=== PATIENT | female | born 1955 | race Caucasian/White ===

== ENCOUNTER 2025-11-02 13:41 | Outpatient (AMB) | payer OTHER, SELFPAY ==
--- NOTE | 2025-11-02 14:42 | A.OFFPC_ITS ---
Vital Signs 11/02/25 14:48 Height 5 ft Weight 166 lb 8 oz BMI 32.5 BP 120/78 Blood Pressure Location Lt brachial Position Sitting Respiration 14 Pulse 67 Pulse Source Pulse Oximeter Temp 97.3 F Temp Source Temporal Artery Scan Pulse Oximetry (%) 96 Oxygen Delivery Method Room Air Intake Visit Reasons: CERTIFIER lower abdominal cramping Intake Note: [place] presents in the offie today to establish care. Recreation Establishment Manager Required: No Is last menstrual period known: No Post menopausal: Yes Patient : No Allergies sulfacetamide Allergy (Verified 11/02/25 14:46) Rash Tobacco use date assessed: 11/02/25 Fall risk assessment: No Falls in past year Last assessed Fall Risk: 11/02/25 Dental Screening Dental Screen Date: 11/02/25 Did you have a dental visit in the last 12 months?: Yes Did you have a dental problem in the last 6 months where you did not have access to dental care?: No Was dental information given to patient?: Patient has dentist HPI HPI Comments History of Present Illness Details 70-year-old female with a past medical h istory of lumbar radiculopathy, intertrigo, macromastia status post bilateral breast reduction presents to establish care. She transferred from [place]. Patient's appointment was booked due to abdominal cramping, but this is resolved. She attributes it to constipation. She went to urgent care for evaluation. She reportedly had an ultrasound which was normal. She has chronic constipation for years. She has a bowel movement every 4 days, but she has to take MiraLax every day. Occasionally she uses laxatives. She feels like food sits in her stomach for a long time after she eats. No nausea or vomiting. No unexplained weight loss or blood in stools. She denies a family history of gastrointestinal problems or cancer. She has no history of diabetes, but when she had an insurance screening tests she was told she was prediabetic. She admits she does not great at drinking water during the day more having fiber in her diet. History of basal cell carcinoma of the right side of the cheek. Followed by [facility]. She has an appointment in December. She has a scaly patch on her right cheek and her right hand for them to examined. Mammogram: Ordered Colon cancer screening 10/18/2016, repeat advised in 10 years per records Tdap 09/03/2014 Bone density: 2 years ago. Ordered Patient says she received influenza vaccine this season and Shingrix vaccine. Recommended pneumonia vaccine and tetanus vaccine. ROS: Constitutional: No unexplained weight loss, fever, chills, fatigue or night sweats. Eyes: No vision changes, blurry vision, double vision, eye pain, eye redness, eye discharge. ENT: No hearing loss, sneezing, congestion, runny nose or sore throat. Respiratory: No shortness of breath, cough or sputum production. Cardiovascular: No chest pain, chest pressure or chest discomfort. No palpitations or pedal edema. Gastrointestinal: No anorexia, nausea, vomiting or diarrhea. No abdominal pain or blood in stool. Genitourinary: No dysuria, hematuria, urinary frequency. Neurologic: No headache, dizziness, syncope, unilateral weakness, ataxia, numbness or tingling in the extremities. Musculoskeletal: No muscle pain, back pain, joint pain or swelling. Hematologic/Lymphatics: No bleeding or bruising. No painful lymph nodes. Skin: see HPI Endocrine: No cold or heat intolerance. No polyuria or polydipsia. Psychiatric: No depression or anxiety. No SI/HI. Physical exam: Constitutional: Alert, in no distress. Head: Normocephalic. Eyes: Pupils are equal, round and reactive to light. Extraocular muscles intact. Ear, Nose and Throat: Canals clear. TMs normal. Normal nasal mucosa. No nasal discharge. No oral lesions. Neck: Supple, Full range of motion. No lymphadenopathy. No palpable thyroid masses. Respiratory: Clear to auscultation. Cardiovascular: S1 S2 regular. No murmurs. No carotid bruits. Gastrointestinal: Abdomen soft, non-tender, non-distended. Normal bowel sounds. No palpable masses. Neurologic: No focal neurological deficits. Symmetric patellar reflexes. Moves all extremities spontaneously. Skin: Small erythematous scaly lesion on the back of the right hand and similar appearing lesion on the right cheek Musculoskeletal: No gross deformities. Normal range of motion. Extremities: Warm and well perfused. No clubbing, cyanosis or edema. Psychiatric: Normal mood and affect PENDING SALE TO [facility] Medical History (Updated 11/02/25 @ 15:22 by MARCO Araujo) Screening for cardiovascular condition Prediabetes Screen for colon cancer Delayed gastric emptying Chronic constipation History of basal cell cancer Surgical History (Updated 11/02/25 @ 14:56 by Patricia Hilario CMA) History of back surgery H/O bilateral breast reduction surgery Family History (Updated 11/02/25 @ 14:58 by Patricia Hilario [facility]) Brother Asthma Diabetes Father Diabetes Cardiovascular disease Lung cancer Mother Cardiovascular disease Bone cancer Maternal Grandmother Cancer Social History (Updated 11/02/25 @ 14:48 by Patricia Hilario [facility]) Housing: House Alcohol intake: current Patient Tobacco Use Status: Never used Tobacco e-Cigarette/Vaping Use: Never Used Second Hand Smoke Exposure: Yes (when young) service: Yes ([employer]) Current occupational status: retired 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 1. Little interest or pleasure in doing things: not at all 2. Feeling down, depressed, or hopeless: not at all 3. Trouble falling or staying asleep, or sleeping too much: several days 4. Feeling tired or having little energy: not at all 5. Poor appetite or overeating: several days 6. Feeling bad about yourself - or that you are a failure or have let yourself or your family down: not at all 7. Trouble concentrating on things, such as reading the newspaper or watching television: not at all 8. Moving or speaking so slowly that other people could have noticed. Or the opposite - being so fidgety or restless that you have been moving around a lot more than usual: not at all 9. Thoughts that you would be better off or of hurting yourself in some way: not at all Total score: 2 Depression Screening Interpretation: Negative Depression Screening Done: Yes 77864 - PHQ-9 Billing: Yes Source: Developed by Drs. Santana Peterson, Keri Pickett, Dav Perez and colleagues, with an educational earl from [employer]. Thrive Questionnaire Date Thrive assessed: 11/02/25 I am a: Patient What is your living situation today?: I have a steady place to live Within the past 12 months, did the food you bought not last and you didn't have the money to get more?: Never true Within the past 12 months, did you worry whether your food would run out before you got money to buy more?: Never true Do you have trouble paying for medicines?: No Do you have trouble getting transportation to medical appointments?: No Do you have trouble paying your heating and electricity bill?: No Do you have trouble taking care of your child, family member or friend?: No Do you have trouble with day-to-day activities such as bathing, preparing meals, shopping, managing finances, etc.?: No Are you currently unemployed and looking for a job?: No Are you interested in more education?: No Please select the resources that you would like help with: None Currently or been in a relationship where the following occur: No concerns reported THRIVE Score: 0 AUDIT C Alcohol Use Questionnaire (AUDIT-C) 1. How often do you have a drink containing alcohol?: Monthly or less 2. How many drinks containing alcohol do you have on a typical day when you are drinking?: 1 or 2 3. How often do you have six or more drinks on one occasion?: Never Total Score: 1 LLOYD-7 AMB Questionnaire LLOYD-7 Date LLOYD - 7 assessed: 11/02/25 Feeling nervous, anxious, or on edge: 0 = Not at all Not being able to stop or control worryin = Not at all Worrying too much about different things: 0 = Not at all Trouble relaxin = Not at all Being so restless that it is hard to sit still: 0 = Not at all Becoming easily annoyed or irritable: 0 = Not at all Feeling afraid as if something awful might happen: 0 = Not at all Total LLOYD-7 score (0-4 normal; 5-9 mild; 10-14 moderate; 15-21 severe): 0 Source: Developed by Drs. Santana Peterson, Keri Pickett, Dav Perez and colleagues, with an educational earl from [employer]. LLOYD-7 Assessment Billing LLOYD-7 Assessment Tool: LLOYD-7 Assessment 78537 Physical exam (Primary Care) Vital Signs: Last Vital Signs Temp 97.3 F 11/02/25 14:48 Pulse 67 11/02/25 14:48 Resp 14 11/02/25 14:48 BP 120/78 11/02/25 14:48 Pulse Ox 96 11/02/25 14:48 Oxygen Delivery Method Room Air 11/02/25 14:48 BMI result Body Mass Index 32.5 Tobacco/Smoking Status: Tobacco use Status Tobacco use date assessed 11/02/25 11/02/25 14:52 Patient Tobacco Use Status Never used Tobacco 11/02/25 14:52 e-Cigarette/Vaping Use Never Used 11/02/25 14:52 PHQ-9: PHQ-9 Score PHQ-9: Total score 2 11/02/25 15:15 Depression Screening Interpretation: Negative Thrive Assessment: Date of Thrive Assessment Date Thrive assessed 11/02/25 11/02/25 14:52 Currently or been in a relationship where the following occur: No concerns reported Coding Level of Care Code Est Pt Prev Care >65y(75410) Add On Preventative Visit Only Diagnoses Routine physical examination Z00.00 Chronic constipation K59.09 Delayed gastric emptying K30 Screen for colon cancer Z12.11 Prediabetes R73.03 Screening for cardiovascular condition Z13.6 Additional Codes LLOYD-7 Assessment Billing - LLOYD-7 Assessment Tool: LLOYD-7 Assessment 80625 ([id number]) PHQ-9 - 27834 - PHQ-9 Billing: Yes ([id number]) Assessment & Plan Assessment & Plan (1) Routine physical examination: Code(s): Z00.00 - Encounter for general adult medical examination without abnormal findings Plan: Patient is seen today for a routine exam. As part of this visit we reviewed the following issues, which are considered and essential part of preventative health in this age group: - Breast Cancer screening - Annual Machine Tool Electrician exam - Screening for colon cancer - Blood pressure screening - Cholesterol screening - Osteoporosis prevention including calcium/vitamin D intake, weight bearing exercise & smoking cessation - Counseling of injury prevention including fire prevention, smoke alarms and seat belt usage - Screening for depression - Recommendations about immunizations - Recommendation of an eye exam (2) Chronic constipation: Code(s): K59.09 - Other constipation Category: Medical Plan: Recommended increasing fiber and fluid intake. Recommended regular exercise. Avoid straining. She is taking MiraLax. Recommended addition of fiber supplement like Benefiber or Metamucil. Refer to Gastroenterology. Check labs including TSH. (3) Delayed gastric emptying: Code(s): K30 - Functional dyspepsia Category: Medical Plan: Refer to Gastroenterology. Check labs including TSH. (4) Screen for colon cancer: Code(s): Z12.11 - Encounter for screening for malignant neoplasm of colon Category: Medical Plan: Patient will be due for colonoscopy in 2025. Referral placed to gastroenterology since there are long waits to schedule consults and procedures at this time. (5) Prediabetes: Code(s): R73.03 - Prediabetes Category: Medical Plan: Check hemoglobin A1c. Recommended low carb, low sugar diet. (6) Screening for cardiovascular condition: Code(s): Z13.6 - Encounter for screening for cardiovascular disorders Category: Medical Plan Schedule physical in 1 year. Orders: Orders MM screening mammo BI 11/02/25 Z12.31 - Encounter for screening mammogram for malignant neoplasm of breast XR DEXA axial skeleton 11/02/25 Z78.0 - Asymptomatic menopausal state Vitamin D 25-OH (D2 and D3) Today K59.09 - Other constipation, R73.03 - Pre diabetes, Z12.11 - Encounter for screening for malignant neoplasm of colon, Z13.6 - Encounter for screening for cardiovascular disorders Comprehensive Met. Panel Today K59.09 - Other constipation, R73.03 - Prediabetes, Z12.11 - Encounter for screening for malignant neoplasm of colon, Z13.6 - Encounter for screening for cardiovascular disorders TSH reflex Free T4 Today K59.09 - Other constipation, R73.03 - Prediabetes, Z12.11 - Encounter for screening for malignant neoplasm of colon, Z13.6 - Encounter for screening for cardiovascular disorders Lipid Panel Today K59.09 - Other constipation, R73.03 - Prediabetes, Z12.11 - Encounter for screening for malignant neoplasm of colon, Z13.6 - Encounter for screening for cardiovascular disorders Complete Blood Count no Diff Today K59.09 - Other constipation, R73.03 - Prediabetes, Z12.11 - Encounter for screening for malignant neoplasm of colon, Z13.6 - Encounter for screening for cardiovascular disorders Hemoglobin A1c Today K59.09 - Other constipation, R73.03 - Prediabetes, R73.9 - Hyperglycemia, unspecified, Z12.11 - Encounter for screening for malignant neoplasm of colon, Z13.6 - Encounter for screening for cardiovascular disorders Referrals Gastroenterology Referral K30 - Functional dyspepsia, K59.09 - Other constipation, Z12.11 - Encounter for screening for malignant neoplasm of colon
[2025-11-02 14:48] VITALS: BP 120/78; PULSE 67; RESP 14; TEMP 36.3; O2SAT 96; BMI 32.5
--- OUTSIDE RECORDS SUMMARY | 2025-11-02 15:56 | XMS_ITS | Clinical Summary ---
Author Organization [address] Address [address] [place] [address] Care Team Providers Care Skatesman Name Role Phone Referring, No Primary Care Provider Unavailabl e Allergies Active Allergy Reactions Criticality Noted Date Comments Sulfa (Sulfonamide Antibiotics) Rash Low 08/05 Medications No known medications Active Problems No known active problems Encounters Date Type Department Care Team Description 08/24/2025 [place] [address] Penelope Yip PA Urine culture 08/21/2025 9:00 AM EDT Office Visit [facility] [address] [place] [address] Kimberly Ovalles PA Urinary frequency (Primary Dx); Pelvic pressure in female from Last 3 Months Social History Tobacco Use Types Packs/Day Years Used Date Smoking Tobacco: Never Tobacco Cessation:Counseling Given: Not Answered Comments Unknown Sex and Gender Information Value Date Recorded Sex Assigned at Not on file Legal Sex Female 11:17 AM EDT Gender Identity Not on file Sexual Orientation Not on file Last Filed Vital Signs Vital Sign Reading Time Taken Comments Blood Pressure 126/82 08/21/2025 8:54 AM EDT Pulse 65 08/21/2025 8:54 AM EDT Temperature 36.9 C (98.5 F) 08/21/2025 8:54 AM EDT Respiratory Rate 16 08/21/2025 8:54 AM EDT Oxygen Saturation 99% 08/21/2025 8:54 AM EDT Inhaled Oxygen Concentration - - Weight 75.8 kg (167 lb) 08/21/2025 8:54 AM EDT Height 152.4 cm (5') 08/21/2025 8:54 AM EDT Body Mass Index 32.61 08/21/2025 8:54 AM EDT Plan of Treatment Health Maintenance Due Date Last Done Comments HIV screening 1968 Hepatitis C screening 1973 Lipid disorder screening 1995 Colon cancer screening, Colonoscopy 2000 Diabetes screening 2000 Pneumococcal Vaccine (50+ years) (1 of 1 - PCV) 2005 Shingles vaccine (Shingrix) (1 of 2 - Shingrix (RZV) 2 Dose Standard Series) 2005 Osteoporosis screening (bone density) 2020 Tetanus adult (Td q 10,TDAP once) 09/03/2024 09/03/2014 Influenza vaccine 06/05/2025 08/21/2021, 08/20/2020 Covid-19 vaccine series ( season) 2025 08/27/2021, 01/29/2021, 12/29/2020 Breast cancer screening 01/19/2027 01/20/20, 01/19/2025 RSV Immunization (1 - 1-dose 75+ series) 2030 Cervical cancer screening Discontinued Meningococcal B Vaccine Aged Out No l onger eligible based on patient's age to complete this topic Meningococcal Vaccine Aged Out No kaleb brandan eligible based on patient's age to complete this topic Procedures Procedure Name Priority Date/Time Associated Diagnosis Comments URINE CULTURE Routine 08/21/2025 9:11 AM EDT Urinary frequency POCT URINALYSIS 10SG ([facility]) Routine 08/21/2025 9:06 AM EDT Urinary frequency from Last 3 Months Results * Urine culture (08/21/2025 9:11 AM EDT) Urine Culture, Routine SEE NOTE [facility] Comment: CULTURE, URINE, ROUTINE Micro Number: [id number] Test Status: Final Specimen Source: Urine Specimen Quality: Adequate Result: Mixed genital edouard isolated. These superficial bacteria are not indicative of a urinary tract infection. No further organism identification is warranted on this specimen. If clinically indicated, recollect clean-catch, mid-stream urine and transfer immediately to Urine Culture Transport Tube. Urine URINE SPECIMEN OBTAINED BY CLEAN CATCH PROCEDURE / Unknown 08/21/2025 9:11 AM EDT 08/22/2025 4:58 AM EDT Narrative Resulting Agency Comment Performing Lab: Site ID: [id number] Name: [facility] Address: [address] [place] [id number] Director: Alda Cartwright M.D. Kimberly LARA MICROBIOLOGY - GENERAL ORD ERABLES Final Result [facility] [address] [place] [address] * POCT Urinalysis 10SG(In-Clinic) (08/21/2025 9:06 AM EDT) POC Leukocytes, UA Negative Negative POC Nitrites, UA Negative Negative POC Urobilinogen, UA Negative Negative POC Protein, UA Negative Negative POC pH, UA 6.0 5.0, 5.5, 6.0, 6.5, 7.0, 7.5, 8.0 POC Blood, UA Negative Negative POC Specific [place], UA 1.010 1.005, 1.010, 1.015, 1.020, 1.025, 1.030 POC Ketones, UA Negative Negative POC Bilirubin, UA Negative Negative POC Glucose, UA Negative Negative POC Clarity, UA Clear Clear POC Color, UA Yellow Yellow, Colorless POC Kit Lot Number, UA [id number] POC Expiration Date, UA 10/15/2026 Urine 08/21/2025 9:06 AM EDT Kimberly LARA POINT OF CARE ORDERS W/FUT URE Final Result from Last 3 Months Insurance [facility] MGD MGD MGD Care Teams Skatesman Relationship Specialty Start Date End Date Referring, No PCP - General 08/21/25
--- OUTSIDE RECORDS SUMMARY | 2025-11-02 15:56 | XMS_ITS ---
Author Name [facility] Organization Unknown History of Medication Use Medication Directions Dispensed Refills Start Date End Date Stat us meloxicam 15 mg tablet Take 1 tablet every day by oral route, for bilateral knees. 09/02/2024 active cephalexin 500 mg capsule TAKE 1 CAPSULE BY MOUTH TWICE DAILY WITH FOOD AND GLASS OF WATER FOR 5 DAYS 09/02/2024 completed meloxicam 15 mg tablet active No known medications No known medications active Allergies Allergen Reaction Severity Comment Documented Date Source Statu s SULFA (SULFONAMIDE ANTIBIOTICS) RASH 08/21/2025 [facility]_YALEUC active Problems Problem Status Onset Date Problem Type Date of Resoluti on Source Patellofemoral syndrome of bilateral knees active 2024-07-15 ProblemAct ENS_AONEC T Encounters Encounter Type Encounter Reason Primary Diagnosis Location Date Ambulatory Urinary frequency Urinary frequency [facility] 08/21/2025 Ambulatory [facility] 09/03/2024 Ambulatory [facility] 09/01/2024 Ambulatory [facility] 08/14/2024 Ambulatory [facility] 07/16/2024 Ambulatory [facility] 07/15/2024 Ambulatory [facility] 07/15/2024 Ambulatory [facility] 07/12/2024 Ambulatory [facility] 07/12/2024 Ambulatory [facility] 06/19/2024 Care Team Organization Name Specialty Phone Email Start Date End [email or web address] 08/27/2025 [facility] 08/21/2025
--- OUTSIDE RECORDS SUMMARY | 2025-11-02 15:56 | XMS_ITS | Clinical Summary ---
Author Organization [facility] [address] [facility] Address [address] [place] [phone] Phone Care Team Providers Care Personal Lines Agent Name Role Phone America Henriquez MD Primary Care Provider [phone] Encounters Date Type Department Care Team Description 08/20/2025 Telephone Adult Medicine - [place] [address] [place] [phone] Basilio Miranda RN 08/20/2025 Telephone Pediatrics - [place] [address] [place] [phone] Leeann Boo DO from Last 3 Months Surgical History Surgery Date Site/Laterality Comments TUBAL LIGATION PROCEDURE: HISTORICAL TUBAL LIGATION OTHER SURGICAL HISTORY 02/11/16 Left PROCEDURE: NE LAMNOTMY INCL W/DCMPRSN NRV ROOT 1 INTRSPC LUMBR; COMMENT: Dr. 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 type CABG Mother Lung cancer Mother Other cancer Mother bone No Known Problems Other No Known Problems Paternal Grandfather Diabetes Paternal Grandmother No Known Problems Sister 1 No Known Problems Sister 2 No Known Problems Son Breast cancer Neg Hx Relation Name Status Comments Brother 1 Alive Brother 2 Alive Brother 3 Alive Brother 4 Daughter 1 Alive Daughter 2 Father Alive Maternal Grandfather Maternal Grandmother Mother Other Paternal Grandfather Paternal Grandmother Sister 1 Alive Sister 2 Alive Son Alive Social History Tobacco Use Types Packs/Day Years Used Date Smoking Tobacco: Never Smokeless Tobacco: Never Alcohol Use Standard Drinks/Week Comments No 0 (1 standard drink = 0.6 oz pur e alcohol) Comments No Sex and Gender Information Value Date Recorded Sex Assigned at Not on file Legal Sex Female 12:31 AM EST Gender Identity Not on file Sexual Orientation Not on file Obstetrics History Para Term AB IAB SAB Ectopic Multiple Livin g Live Births 3 3 3 3 Date Outcome GA Total Labor Labor/2nd/3rd Weight Sex Type Anes PTL Kaylee A1 A5 Name Clin Term Term Term Last Filed Vital Signs Vital Sign Reading Time Taken Comments Blood Pressure 108/66 04/13/2023 10:05 AM EDT Pulse 67 04/13/2023 10:05 AM EDT Temperature - - Respiratory Rate - - Oxygen Saturation - - Inhaled Oxygen Concentration - - Weight 74.4 kg (164 lb) 04/13/2023 10:05 AM EDT Height 152.4 cm (5') 04/13/2023 10:05 AM EDT Body Mass Index 32.03 04/13/2023 10:05 AM EDT Plan of Treatment Health Maintenance Due Date Last Done Comments Colorectal Cancer Screening: Colonoscopy 1955 Pneumococcal Vaccine: 50+ Years (1 of 1 - PCV) 2005 Falls Risk Assessment 10/14/2022 Hepatitis C Screening 10/14/2022 Medicare Annual Wellness Visit 10/14/2022 Social Influencers of Health Screening 10/14/2022 DTaP,Tdap,and Td Vaccines (3 - Td or Tdap) 09/03/2024 09/03/2014, 10/18/2004 Depression Screening 11/05/2024 COVID-19 Vaccine ( season) 2025 07/27/2023, 09/08/2022, 02/10/2022, Additional history exists Influenza Vaccine (#1) 2025 , 08/20/2023, 08/31/2022, Additional history exists Breast Cancer Screening 01/19/2027 01/20/20, 01/09/2024, 01/09/2024, Additional history exists RSV Immunization Adult Patients (1 - 1-dose 75+ series) 2030 Osteoporosis Screening (Bone Density Screening) 07/26/2033 07/26/2023 Zoster Vaccines Completed 04/08/2024, 01/28/2024 HIB Vaccines Aged Out No longer eligi ble based on patient's age to complete this topic HPV Vaccines Aged Out No longer eligi ble based on patient's age to complete this topic Hepatitis A Vaccines Aged Out No long er eligible based on patient's age to complete this topic Hepatitis B Vaccines Aged Out No long er eligible based on patient's age to complete this topic IPV Vaccines Aged Out No longer eligi ble based on patient's age to complete this topic MMR Vaccines Aged Out No longer eligi ble based on patient's age to complete this topic Meningococcal ACWY Vaccine Aged Out N o longer eligible based on patient's age to complete this topic Meningococcal B Vaccine Aged Out No l onger eligible based on patient's age to complete this topic RSV Immunization Patients Under 20 months Aged Out No longer eligible based on patient's age to complete this topic Varicella Vaccines Aged Out No longer eligible based on patient's age to complete this topic Procedures Procedure Name Priority Date/Time Associated Diagnosis Comments MG MAMMO DIGITAL SCREENING W CHRIS BILAT Routine 01/19/2025 9:47 AM EDT Encounter for screening mammogram for breast cancer DXA BONE DENSITY STUDY 1+ SITS AXIAL SKEL Routine 07/26/2023 1:20 PM EDT Encounter for screening for osteoporosis from Last 3 Months or Most Recently Relevant to Health Maintenance Results * MG Mammo Digital Screening w Chris bilat (01/19/2025 9:47 AM EDT) Anatomical Region Laterality Modality Breast Bilateral Mammography 01/19/2025 9:01 PM EDT Impressions 01/19/2025 9:02 PM EDT No mammographic evidence of malignancy. BREAST DENSITY: B - There are scattered areas of fibroglandular density. BI-RADS CATEGORY: 2 - BENIGN RECOMMENDATION: Screening bilateral mammogram is recommended in 1 year. MAMMO LOCATION: [facility], [address] [place] [address], [id number], . -------- FINAL REPORT -------- Dictated By: Katherine Martins Dictated Date: 01/19/2025 21:01 ET Assigned Physician: Katherine Martins Reviewed and Electronically Signed By: Katherine Martins Signed Date: 01/19/2025 21:02 ET Workstation ID: [id number] Transcribed By: Self Edit Transcribed Date: 01/19/2025 21:01 ET Narrative 01/19/2025 9:02 PM EDT EXAM: Screening Mammogram CLINICAL: 69 years old, Female, routine annual exam. History of bilateral reduction mammoplasty. COMPARISON: 01/09/2024 and as far back as 12/02/2020 TECHNIQUE: Bilateral MLO and CC views were obtained digitally with 3-D mammogram (digital breast tomosynthesis). Computer-aided detection was utilized in evaluation of this exam (CAD). FINDINGS: Stable bilateral postsurgical changes of reduction mammoplasty. No new suspicious mass, architectural distortion, or suspicious calcifications. Procedure Note Katherine Martins MD - 01/19/2025 EXAM: Screening Mammogram CLINICAL: 69 years old, Female, routine annual exam. History of bilateralreduction mammoplasty. COMPARISON: 01/09/2024 and as far back as 12/02/2020 TECHNIQUE: Bilateral MLO and CC views were obtained digitally with 3-Dmammogram (digital breast tomosynthesis). Computer-aided detection wasutilized in evaluation of this exam (CAD). FINDINGS: Stable bilateral postsurgical changes of reduction mammoplasty. No newsuspicious mass, architectural distortion, or suspicious calcifications. IMPRESSION: No mammographic evidence of malignancy. BREAST DENSITY: B - There are scattered areas of fibroglandular density. BI-RADS CATEGORY: 2 - BENIGN RECOMMENDATION: Screening bilateral mammogram is recommended in 1 year. MAMMO LOCATION: [facility], [address] [place] [address], [id number], . -------- FINAL REPORT -------- Dictated By: Katherine Martins Dictated Date: 01/19/2025 21:01 ET Assigned Physician: Katherine Martins Reviewed and Electronically Signed By: Katherine Martins Signed Date: 01/19/2025 21:02 ET Workstation ID: [id number] Transcribed By: Self Edit Transcribed Date: 01/19/2025 21:01 ET us Leeann Boo DO IMG BI PROCEDURES Final Result * DXA BONE DENSITY STUDY 1+ SITS AXIAL SKEL (07/26/2023 1:20 PM EDT) Anatomical Region Laterality Modality Bone Densitometr y 04/13/2023 10:2 6 AM EDT Narrative 07/27/2023 7:31 AM EDT STUDY: DUAL ENERGY X-RAY ABSORPTIOMETRY / DXA REASON FOR EXAM: Female, 68 years old. menopausal/postmenopausal disorder TECHNIQUE: Bone Mineral Density (BMD) measurements of the lumbar spine and left hip were obtained. COMPARISON: None FINDINGS: L1-L4 T score: 1.6. This corresponds to Normal bone density. Left femoral neck T score: 1.0. This corresponds to Normal bone density. Left total hip T score: 1.7. This corresponds to Normal bone density. IMPRESSION: IMPRESSION: Normal bone density Reference Information: The T-score is the number of standard deviations above or below the standard which is normal for young adults at their peak bone mineral density. The World Health Organization (WHO) interprets the T-scores as follows: Above -1 Normal bone density Between -1 and -2.5 Osteopenia Equal to / or below -2.5 Osteoporosis As a practical clinical guideline, osteopenia may be graded as follows: Mild -1 through -1.5 Moderate -1.6 through -2.0 Severe -2.1 through -2.4 References: 1. NIH Osteoporosis and Related Bone Diseases http://www.osteo.org 2. International Society for Clinical Densitometry http://www.iscd.org 3. National Osteoporosis Foundation http://www.nof.org Procedure Note Fortino Madera MD - 12/11/2023 STUDY: DUAL ENERGY X-RAY ABSORPTIOMETRY / DXA REASON FOR EXAM: Female, 68 years old. menopausal/postmenopausaldisorder TECHNIQUE: Bone Mineral Density (BMD) measurements of the lumbar spineand left hip were obtained. COMPARISON: None FINDINGS: L1-L4 T score: 1.6. This corresponds to Normal bone density. Left femoral neck T score: 1.0. This corresponds to Normal bonedensity. Left total hip T score: 1.7. This corresponds to Normal bone density. IMPRESSION: IMPRESSION: Normal bone density Reference Information: The T-score is the number of standard deviations above or below thestandard which is normal for young adults at their peak bone mineral density. The World HealthOrganization (WHO) interprets the T-scores as follows: Above -1 Normal bone density Between -1 and -2.5 Osteopenia Equal to / or below -2.5 Osteoporosis As a practical clinical guideline, osteopenia may be graded as follows: Mild -1 through -1.5 Moderate -1.6 through -2.0 Severe -2.1 through -2.4 References: 1. NIH Osteoporosis and Related Bone Diseases http://www.osteo.org 2. International Society for Clinical Densitometry http://www.iscd.org 3. National Osteoporosis Foundation http://www.nof.org Stephany LARA IMG DXA PROCEDURES Fi nal Result from Last 3 Months or Most Recently Relevant to Health Maintenance Insurance [employer] Care Teams Personal Lines Agent Relationship Specialty Start Date End Date America Henriquez MD [address] [place] [phone] PCP - General Internal Medicine 08/25/25
== END 2025-11-02 15:33 | disposition home or self-care (01) ==
LOC: HO.HMCFM 13:42
PROVIDERS: PCP Physician Assistant Medical; Visit Provider Physician Assistant Medical
DX: Z00.00 Encounter for general adult medical examination without abnormal findings (principal); K59.09 Other constipation; K30 Functional dyspepsia; Z12.11 Encounter for screening for malignant neoplasm of colon; R73.03 Prediabetes; Z13.6 Encounter for screening for cardiovascular disorders

== ENCOUNTER 2025-11-03 09:10 | Outpatient (REF) | payer MEDICARE, SELFPAY ==
--- OUTSIDE RECORDS SUMMARY | 2025-11-03 11:34 | XMS_ITS | Data Portability ---
Author Organization [place] [facility] Idalia Soares [place] Address [address] [place] [address] Care Team Providers Care Engineering Illustrator Name Role Phone [facility] Primary Care Provi [email or web address] Assessment Encounter Date Assessment Date Assessment LastModified by Organization Details LastModified Time 07/15/2024 07/15/2024 The patient's history and physical exam are consistent with Bilateral patellofemoral pain syndrome. The nature of this condition was discussed with the patient. The patient understands this is most likely an overuse/repetitiv e injury. Malalignment of the patella was discussed with the patient as a possible contributing factor. Initial treatment options include avoiding aggravating activities, NSAIDS, knee braces, and physical therapy with quadriceps strengthening exercises. If these treatments fail, then a cortisone injection may provide pain relief. If symptoms persist, further testing or operative intervention may be necessary. After discussion, the patient was eager to a trial of physical therapy. She will follow-up in 4 to 6 weeks to assess progress with therapy, sooner for any complications. Patient was seen and evaluated by Ming Ordonez PA-C in indirect conjunction with Dr. Cox. The provider agrees with the history, physical examination, recommended tests/diagnostic imaging, and treatment plan. [email or web address] Not available 07/15/2024 13:26:40 09/02/2024 09/02/2024 Bilateral, right greater than left, knee pain in the setting of mild lateral and patellofemoral compartment arthritis. X-ray images reviewed in detail with patient. We reviewed the natural history of osteoarthritis. I used diagrams and a model to demonstrate the areas of arthritic change. The patient understands that symptoms may progress over time requiring further intervention. We discussed in detail available treatment options. We discussed activity modification, especially avoiding impact type activities. We discussed the need for an ongoing maintenance flexibility and strengthening program. This should involve the core musculature, the hip, as well as the quadriceps and hamstrings. Intermittent icing 20 minutes off in 3 to 4 times a day may be helpful for control of swelling. Eoxt-itk-ofrdiqd or prescription-stre ngth anti-inflammatory medications with appropriate GI precautions or Tylenol may be helpful in controlling intermittent symptoms of pain. An assistive device such as a cane may be helpful in unloading the joint. We also discussed other interventions including therapeutic injections. We discussed two varieties of injections, cortisone and viscosupplementat ion. We also discussed the possibility of surgical intervention if symptoms persist. We discussed arthroscopic intervention as well as total knee arthroplasty. Discussed treatment options: 1. Rest, ice, anti-inflammatori es 2. Injections We discussed in detail the risks and benefits of treatment options. Encouraged exercising in a low impact way, including biking, elliptical, swimming, and yoga. Emphasized the importance of weight loss/management and overall healthy lifestyle. Prescription for meloxicam sent to her pharmacy. Risk and side effects of medication discussed. She will follow-up in 2 months. [email or web address] Not available 09/02/2024 09:00:50 Plan of Treatment Reminders Order Date Submit Date Provider Last Modified By Organization Details Last Modified Time Details Appointments None recorded . Lab None recorded . Referral physical therapis t referral - Frequenc y: 2 visits per week for 6 weeks Therapy: Evaluate and Treat Modaliti es: As needed Precauti ons - if any: Goals: ROM, HEP, Decrease Pain, Increase Strength , stabilit y and Enduranc e. 2023 024 [email or web address] Not available 13:24:45 Procedures None recorded . Surgeries None recorded . Imaging XR, knee, 4 or more view 2023 024 [email or web address] [facility], [address], [address], [place], [address], 13:51:31 XR, knee, 4 or more view 2023 [email or web address] [facility], [address], [place], [address], 13:51:31 Medication Orders meloxica m 15 mg tablet 2023 [id number], [address] [place] [address], [address], [place], [place], [id number], 16:43:31 Patient TargetsNo targets recorded. Patient Instructions Encounter Date Encounter Id Patient Instructions Last Modified By Organization Details Last Modified Time 07/15/2024 [id number] Radiographs: 5 views of Both knee(s) were obtained in the [place] office on 07/15/2024 including AP, Gonsalez, lateral (weightbearing), and sunrise. X-rays demonstrated normal bony mineralization. Joint spaces Fairly well-maintained for age . there is some spurring at the superior pole of the patella bilaterally no evidence of acute injury or fracture. X-ray interpretation by: Ming Ordonez PA-C [email or web address] Not available 07/15/2024 13:28:09 09/02/2024 [id number] Suggest ice, res t and NSAIDs as needed. Encouraged exercising in a low impact way, including biking, elliptical, swimming, and yoga. Emphasized the importance of weight loss/management and overall healthy lifestyle. Prescription given for physical therapy to include the following: [email or web address] Not available 09/02/2024 08:49:08 Reason for Referral Physical Therapist Referral for Patellofemoral syndrome of bilateral knees Frequency: 2 visits per week for 6 weeksTherapy: Evaluate and TreatModalities:As neededPrecautions - if any:Goals: ROM, HEP, Decrease Pain, Increase Strength, stability and Endurance. Referring Physician: Ming Ordonez, Orthopedic Surgery, Encounter Date: 07/15/2024 Problems Name Problem SNOMED Code Status Onset Date Resolution Date Notes Provider Name and Address Organization Details Recorded Time Patellofemo ral syndrome of bilateral knees 6062199788054 9105 Active 2023 MING ORDONEZ PA-C [address], [facility] [place], [address], [place] [facility] 13:21:37 Problem Notes None recorded. Procedures Surgical History Date Name Laterality Status Provider Name and Address Organization Details Recorded Time Breast reduction completed [facility] 07/15/2024 12:58:37 procedure on back completed [facility] 07/15/2024 12:58:53 Imaging Results None recorded. Procedure Notes None recorded. Medical Equipment None Reported. Allergies Allergen ID Allergen Name Allergen Category Reaction Reaction Severity Criticality Documentation Date Start Date Code Code System Note Provider Name and Address Organization Details Recorded Time 91175 Substance with sulfonami de structure and antibacte rial mechanism of action (substanc e) medicatio n Not available Not available Not available 07/15/2024 11532 8003 SNOMED [facility] 12:57:17 Medications Name Sig Start Date Stop Date Status Note LastModified by Organization Details LastModified Time meloxicam 15 mg tablet TAKE 1 TABLET BY MOUTH EVERY DAY FOR BILATERAL KNEES active Not Available Not Available No t Available cephalexin 500 mg capsule TAKE 1 CAPSULE BY MOUTH TWICE DAILY WITH FOOD AND GLASS OF WATER FOR 5 DAYS 09/02 completed Not Available Not Available Not Available Vitals Date Recorded Body height Body mass index (BMI) Body weight Provider Name and Address Organization Details Last Updated DateTime 07/15/2024 152.4 cm 32 kg/m2 24262.15 g [facility] 07/15/2024 12:57:24 Date Recorded Body height Body mass index (BMI) Body weight Provider Name and Address Organization Details Last Updated DateTime 09/02/2024 152.4 cm 32 kg/m2 12010.15 g Elinor Duarte [facility] 09/02/2024 08:33:46 Social History None recorded. Functional Status Question Answer Note LastModified by Organizat ion Details LastModified Time Do you use any illicit or recreational drugs? No [email or web address] Information not available 07/15/2024 Do you or have you ever used any other forms of tobacco or nicotine? No Information not available 07/15/2024 What is your level of alcohol consumption? None Information not available 07/15/2024 Mental Status None recorded. Family History Relationship Description Onset Age of this Age Resolved Age Notes LastModified by Organization Details LastModified Time Sister Arthritis Not available 07/15/2024 12:57:46 Sister Hypercholest erolemia [email or web address] Not available 2023 12:58:19 Mother History of cancer of unknown primary site [email or web address] Not available 08/2024 12:57:53 Mother Heart disease [email or web address] Not available 2023 12:58:02 Father History of cancer of unknown primary site [email or web address] Not available 08/2024 12:57:53 Father Heart disease [email or web address] Not available 2023 12:58:02 Brother Hypercholesalyssa [email or web address] Not available 2023 12:58:19 Medical History Condition Response Coronary Artery Disease N Gout N Hyperthyroidism N MRSA N Blood Transfusion N Emphysema N Depression N COPD N Hypothyroidism N Pacemaker N Vascular Disease N Gastrointestinal Disease N Anxiety Disorder N Autoimmune disease N Arthritis N Cancer N Stroke N High Cholesterol N Neurologic Disorder N Liver Disease N Organ Transplant N Rheumatoid Arthritis N Arrhythmia N Fibromyalgia N Kidney Disease N Allergies/Hayfever N Adverse Reaction to Anesthesia N Thyroid Problems N Anemia N Brain Injury N Heart Attack (NC) N Osteopenia N Diabetes N Bleeding Disorder N Seizures/Epilepsy N AIDS/HIV N Congestive Heart Failure (CHF) N Asthma N Amputation N Reflux/GERD N Sleep Apnea N Hepatitis N Aneurysm N Heart Disease N Pulmonary Embolism N Hypertension N Osteoporosis N Gynecological HistoryNo gynecological history recorded. Obstetrics History GPAL:G 0 P 0 0 0 0 Past Encounters Encounter ID Performer Location Encounter Start Date Encounter Closed Date Diagnosis/Indication Diagnosis SNOMED-CT Code Diagnosis ICD10 Code Diagnosis IMO Codes Diagnosis Note [id number] [address] KO[address]ER [address] [place] [id number] 07/15/2024 12:44:42 07/15/2024 13:23:15 Pain of right knee region 1058838201 86331 M25.561 63841501 Pain of le ft knee region 7407029180 70201 M25.562 69408017 Patellofem oral syndrome of bilateral knees 2420446341 4524163 M22.2X1 M22.2X2 [id number] Winston Cox MD [address] [place] [address] 09/02/2024 08:30:04 09/02/2024 08:54:20 Pain of left knee joint 9300190576 97055 M25.562 682656 Pain of ri ght knee joint 8110206213 55410 M25.561 388317 Body mass index 30+ - obesity 507857164 Z68.32 509421 Osteoarthr itis of left knee joint 6229953435 18436 M17.12 7370219 Osteoarthr itis of right knee joint 4959767968 99059 M17.11 3511054 Health Concerns Section Related Observation LastModified by Organization Detai ls LastModified Time None Recorded Concern Status LastModified by Organization Details LastModified Time None Recorded Advance Directives Directive None Recorded Payers Insurance Date Sequence Insurance Name Policy Number Policy Crowe Covered Member ID Crowe Member ID Guarantor Name 08/30/2024 1 [facility] (MEDICARE REPLACEMENT/A DVANTAGE - PPO) [id number] India Lind [id number] India Lind Notes Date Note Type Note Provider Name and Address Organization Details Recorded Time 07/15/2024 text/html ROS as noted in the HPI Patient is a 69-year-old female who presents today with bilateral knee pain, right greater than left. Symptoms are not constant although she has episodes of more severe pain in her right knee which can wake her at night. She sometimes has difficulty finding a comfortable position. She denies any swelling in her knees. She was more active, but has been decreasing activity due to her symptoms. She is no longer playing pickle ball and finding longer walks more difficult. MING ORDONEZ PA-C [address], [place], [address], [place] [facility] 07/15/2024 13:28:39 09/02/2024 text/html India presents to the office today for an evaluation of her bilateral knees. She notes pain for a couple of years with no known injury. In February, her pain started to keep her up at night.Her pain is moderate and intermittent. On average, her pain is a 4 out of 10 and a 7 out of 10 at worst. Her function and motion are good. She has tried formal PT, home exercises, Aleve and Ibuprofen with some relief. She has not played pickle ball since February. Ming Ordonez's Office Note 07/15/2024:Patient is a 69-year-old female who presents today with bilateral knee pain, right greater than left. Symptoms are not constant although she has episodes of more severe pain in her right knee which can wake her at night. She sometimes has difficulty finding a comfortable position. She denies any swelling in her knees. She was more active, but has been decreasing activity due to her symptoms. She is no longer playing pickle ball and finding longer walks more difficult. Winston Cox MD [address], [place], [address], [place] [facility] 09/02/2024 09:01:13 OBGyn Episode No OBEpisode recorded.
--- OUTSIDE RECORDS SUMMARY | 2025-11-03 11:34 | XMS_ITS | Clinical Summary ---
Author Organization [address] Address [address] [place] [address] Care Team Providers Care Customer Engagement Manager Name Role Phone Referring, No Primary Care Provider Unavailabl e Allergies Active Allergy Reactions Criticality Noted Date Comments Sulfa (Sulfonamide Antibiotics) Rash Low 08/05 Medications No known medications Active Problems No known active problems Encounters Date Type Department Care Team Description 08/24/2025 [place] [address] Penelope Yip PA Urine culture 08/21/2025 9:00 AM EDT Office Visit [facility] [address] [place] [address] Kimberly Ovalles PA Urinary frequency (Primary Dx); [...] AM EDT Urinary frequency POCT URINALYSIS 10SG ([facility]) Routine 08/21/2025 9:06 AM EDT Urinary frequency from Last 3 Months Results * Urine culture (08/21/2025 9:11 AM EDT) Urine Culture, Routine SEE NOTE [facility] Comment: CULTURE, URINE, ROUTINE Micro Number: [id number] Test Status: Final Specimen Source: Urine Specimen [...] Comment Performing Lab: Site ID: [id number] Name: [facility] Address: [address] [place] [address] Director: Alda Cartwright M.D. Kimberly LARA MICROBIOLOGY - GENERAL ORD ERABLES Final Result [facility] [address] [place] [address] * POCT Urinalysis 10SG(In-Clinic) (08/21/2025 9:06 AM EDT) POC Leukocytes, UA Negative Negative POC Nitrites, UA Negative Negative POC Urobilinogen, UA Negative Negative POC Protein, UA Negative Negative POC pH, UA 6.0 5.0, 5.5, 6.0, 6.5, 7.0, 7.5, 8.0 POC Blood, UA Negative Negative POC Specific [place], UA 1.010 1.005, 1.010, 1.015, 1.020, 1.025, 1.030 POC Ketones, UA Negative Negative POC Bilirubin, UA Negative Negative POC Glucose, UA Negative Negative POC Clarity, UA Clear Clear POC Color, UA Yellow Yellow, Colorless POC Kit Lot Number, UA [id number] POC Expiration Date, UA 10/15/2026 Urine 08/21/2025 9:06 AM EDT Kimberly LARA POINT OF CARE ORDERS W/FUT URE Final Result from Last 3 Months Insurance [facility] MGD MGD MGD Care Teams Customer Engagement Manager Relationship Specialty Start Date End Date Referring, No PCP - General 08/21/25
--- OUTSIDE RECORDS SUMMARY | 2025-11-03 11:34 | XMS_ITS | Clinical Summary ---
Author Organization [facility] [address] [facility] Address [address] [place] [phone] Phone Care Team Providers Care Sql Server Developer Name Role Phone America Henriquez MD Primary Care Provider [phone] Encounters Date Type Department Care Team Description 08/20/2025 Telephone Adult Medicine - [place] [address] [place] [phone] Basilio Miranda RN 08/20/2025 Telephone Pediatrics - [place] [address] [place] [phone] Leeann Boo DO from Last 3 Months Surgical History Surgery Date Site/Laterality Comments TUBAL LIGATION PROCEDURE: HISTORICAL TUBAL LIGATION OTHER SURGICAL HISTORY 02/11/16 Left PROCEDURE: DC LAMNOTMY INCL W/DCMPRSN NRV ROOT 1 INTRSPC LUMBR; COMMENT: Dr. Trivedi COLONOSCOPY 04/20/06 PROCEDURE: HISTORICAL COLONOSCOPY; COMMENT: tics OTHER SURGICAL HISTORY 10/18/16 PROCEDURE: COLON CA SCRN NOT HI RSK IND; COMMENT: tics; repeat in 10 yrs BREAST SURGERY 06/2018 Bilateral PROCEDURE: DC UNLISTED PROCEDURE BREAST; COMMENT: breast reduction DC BREAST REDUCTION 11/05/2017 - 11/04/2018 Bilateral Medical [...] is recommended in 1 year. MAMMO LOCATION: [facility], [address] [place] [address], [address], . -------- FINAL REPORT -------- Dictated By: Katherine Martins Dictated Date: 01/19/2025 21:01 ET Assigned Physician: Katherine Martins Reviewed and Electronically Signed By: Katherine Martins Signed Date: 01/19/2025 21:02 ET Workstation ID: [id number] Transcribed By: Self Edit Transcribed Date: 01/19/2025 [...] is recommended in 1 year. MAMMO LOCATION: [facility], [address] [place] [address], [address], . -------- FINAL REPORT -------- Dictated By: Katherine Martins Dictated Date: 01/19/2025 21:01 ET Assigned Physician: Katherine Martins Reviewed and Electronically Signed By: Katherine Martins Signed Date: 01/19/2025 21:02 ET Workstation ID: [id number] Transcribed By: Self Edit Transcribed Date: 01/19/2025 [...] Maintenance Insurance [employer] Care Teams Sql Server Developer Relationship Specialty Start Date End Date America Henriquez MD [address] [place] [phone] PCP - General Internal Medicine 08/25/25
[2025-11-03 15:44] LABS: Hematocrit 43.2 % (37.0-47.0); Hemoglobin 14.5 g/dl (12.0-16.0); Mean Corpuscular HGB Conc 33.6 g/dl (31.0-35.0); Mean Corpuscular Hemoglobin 31.5 pg (27.0-33.0); Mean Corpuscular Volume 93.7 fL (80.0-98.0); NRBC Abs Auto 0.000 X10*3/uL (0.0-0.012); NRBC Pct Auto 0.0 /100WBC (0.0-0.2); Platelet Count 275 X10*3/uL (160-400); Red Blood Count 4.61 X10*6/uL (4.20-5.50); White Blood Count 3.4 X10*3/uL (4.8-10.8)
[2025-11-03 16:06] LABS: Hemoglobin A1C 149.2287 umol/L
[2025-11-03 16:11] LABS: Alanine Aminotransferase 37 U/L (0-31); Albumin Level 4.3 g/dL (3.5-5.0); Alkaline Phosphatase 65 U/L (39-117); Anion Gap 9 (12-20); Aspartate Amino Transferase 44 U/L (5-31); Blood Urea Nitrogen 16 mg/dL (9-16); Calcium 9.5 mg/dL (8.4-10.2); Carbon Dioxide 27 mmol/L (22-29); Chloride 108 mmol/L (96-108); Cholesterol 216 mg/dL (<200); Estimated Glomerular Filt Rate > 60; HDL Cholesterol 54 mg/dL (>40); Potassium 4.2 mmol/L (3.3-5.1); Sodium 140 mmol/L (135-145); Total Protein 6.8 g/dL (6.5-8.0); Triglycerides 64 mg/dL (<150)
== END 2025-11-03 09:11 ==
LOC: HO.WFDLDS 09:10
PROVIDERS: Visit Provider Physician Assistant Medical
DX: Z12.11 Encounter for screening for malignant neoplasm of colon (principal); Z13.6 Encounter for screening for cardiovascular disorders; K59.09 Other constipation; R73.03 Prediabetes; R73.9 Hyperglycemia, unspecified
CPT/HCPCS: 36415; 80053; 80061; 82306; 83036; 84443; 85027